=== PATIENT | female | born 1955 | race Caucasian/White ===

== ENCOUNTER 2022-02-12 10:10 | Emergency (ER) | payer MEDICARE, SELFPAY ==
[2022-02-12] VITALS (9 sets, daily range): BP systolic 115–172; BP diastolic 70–92; PULSE 68–88; RESP 17; TEMP 36.1; O2SAT 95–96; BMI 29.8
--- NOTE | 2022-02-12 10:47 | DI.RAD.S_ITS ---
PROCEDURE: XR HAND LT MIN 3V INDICATIONS: dog bit TECHNIQUE: 3 views of the hand(s) acquired. COMPARISON: None. FINDINGS: Bones: No fractures or dislocations. Carpal bones are normally aligned. No suspicious bony lesions. Soft tissues: No suspicious soft tissue calcifications. No soft tissue gas. No radiopaque foreign body. IMPRESSION: No evidence acute bony abnormality of the left hand. If clinical suspicion and/or symptoms persist, further assessment with repeat plain films, or advanced imaging (e.g., CT, MRI, or bone scan) may be helpful for further assessment. Dictated by: Juan Antonio Giles M.D. on 02/12/2022 at 10:57 Approved by: Juan Antonio Giles M.D. on 02/12/2022 at 10:58
[2022-02-12] MEDS: TET,DIPH,PERTUSS(ACELL),VAC/PF 0.5 ML SYRINGE IM (11:38)
[2022-02-12] MEDS: LIDO 1%/SOD BICARB 8.4% (10ML) 10 ML SYRINGE INJ (12:34)
[2022-02-12] MEDS: CLINDAMYCIN 150 MG CAPSULE 300 MG PO (12:34)
[2022-02-12] MEDS: IBUPROFEN 400 MG TABLET 800 MG PO (12:34)
[2022-02-12] MEDS: ONDANSETRON 4 MG ODT SL (12:34)
[2022-02-12] MEDS: TRAMADOL 50 MG TABLET PO (12:35)
[2022-02-12] MEDS: CLINDAMYCIN 150 MG CAPSULE PO (12:35)
[2022-02-12] MEDS: TRIMETH/SULFA 160/800 (DS) TABLET 1 TAB PO (12:35)
--- NOTE | 2022-02-12 15:54 | ED.ANIMALBIT ---
HPI - Animal Bite <JENNIFER Harrison - Last Filed: 02/12/22 16:03> General Chief Complaint: Animal Bite Stated Complaint: bite by a dog, lt hand ripped open Time Seen by Provider: 02/12/22 12:03 Source: patient Mode of arrival: Ambulatory History of Present Illness HPI narrative: This is a 66-year-old female presents to the emergency department with a left hand injury after her friend's dog bit the dorsum of her left hand. Patient is right-handed, states the dog reacted to her and bit the dorsum of her left hand over the MCP joint of her 2nd digit. She does not remember when her last tetanus was, states that she has a history of diabetes and psoriatic arthritis. She states that she took tramadol this morning for her pain and has been helpful. Patient has a dog is vaccinated for rabies and his vaccines are current. She has a dressing over her hand, states the bleeding is controlled with a dressing over it. Is she reports that it is approximately 2 in a [place] with a flap. Related Data Previous Rx's Medication Instructions Recorded mupirocin 2 % topical ointment 1 applic topical DAILY PRN hand 02/12/22 lac #15 grams ondansetron HCl 4 mg tablet 4 mg PO DAILY PRN nausea and 02/12/22 vomiting #10 tabs tramadol 50 mg tablet 50 mg PO BID PRN pain #14 tabs 02/12/22 Allergies Allergy/AdvReac Type Severity Reaction Status Date / Time Penicillins Allergy Verified 02/12/22 10:43 Review of Systems <JENNIFER Harrison - Last Filed: 02/12/22 16:03> Review of Systems Narrative: General: denies fever, chills, malaise, sweats, fatigue Head/Neck: denies headache, neck pain, dizziness Eyes: denies visual changes, eye pain Cardio: denies chest pain, palpitations, edema Respiratory: denies dyspnea, cough, orthopnea GI: denies abdominal pain, nausea, vomiting, or diarrhea : denies dysuria, hematuria, urinary retention, frequency or incontinence MSK: denies joint pain, muscle weakness Skin: denies rash, itching, skin lesions or other, laceration over the dorsum of her left hand which is covered she states it is very painful Neuro: denies numbness, tingling Patient History <JENNIFER Harrison - Last Filed: 02/12/22 16:03> Social History Smoking Status: Unknown if ever smoked Smoking Status: Unknown if ever smoked alcohol intake frequency: holidays/special occasions only Substance Use Type: does not use Exam <JENNIFER Harrison - Last Filed: 02/12/22 16:03> Narrative Exam Narrative: Independently reviewed vitals signs and nursing notes. General: cooperative, comfortable, in no acute distress, well groomed Head: atraumatic, symmetrical facial expressions Neck: supple Eyes: equal round and reactive, EOMI, conjunctiva normal Nose: nares patent, no rhinorrhea Mouth/Throat: moist mucus membranes Cardiovascular: regular rate and rhythm, no peripheral edema, warm extremities Respiratory: normal effort, able to speak in complete sentences, no audible wheezing, stridor, or rales. No retractions or tachypnea. MSK: moves all extremities, neurovascularly intact, no weakness, normal tone Skin: brisk capillary refill, no rash, no erythema, 2.0 circular avulsion/ laceration to the dorsum of her left hand, venous oozing Neuro: normal speech and cognition, A&O x3 Psych: mental status is grossly normal, congruent mood, normal affect, pleasant and cooperative Initial Vital Signs Initial Vital Signs: Vital Signs Temperature 97.0 F L 02/12/22 10:42 Pulse Rate 88 02/12/22 10:42 Respiratory Rate 17 02/12/22 10:42 Blood Pressure 129/85 02/12/22 10:42 Pulse Oximetry 95 02/12/22 10:42 Oxygen Delivery Method 02/12/22 10:42 <Roma Benavidez DO - Last Filed: 02/20/22 18:35> Initial Vital Signs Initial Vital Signs: Vital Signs Temperature 97.0 F L 02/12/22 10:42 Pulse Rate 88 02/12/22 10:42 Respiratory Rate 17 02/12/22 10:42 Blood Pressure 129/85 02/12/22 10:42 Pulse Oximetry 95 02/12/22 10:42 Oxygen Delivery Method 02/12/22 10:42 Procedures <JENNIFER Harrison - Last Filed: 02/12/22 16:03> Laceration Repair Laceration 1: Site: hand Side (If applicable): left Size (cm): 4 Description: flap, irregular and contaminated Depth: simple, single layer Local Anesthetic: lidocaine 1% and with bicarb Amount of anesthesia used (mL): 7 Pre-repair: wound explored, irrigated extensively, deep structures intact and extensive debridement Skin layer closed with: nylon Skin layer suture size: 6-0 Number of sutures: 9 Technique: horizontal mattress Orthopedic Splinting/Casting Injury #1: Side: left Upper Extremity Injury Location: hand and finger Upper Extremity Immobilizer: posterior splint (Second and 3rd digit splinted in extension with 2 in Ortho Glass from the distal tips of the 2nd and 3rd digit to the palmar aspect of her hand, wound was covered with Xeroform, Telfa, and bulky gauze dressing, her hand was wrapped with padding and gauze, splinted with Ortho Glass and wrapped with A) Post splinting neuro exam: intact and no change Post splinting vascular exam: intact Placed by: Provider Course <Yandy Shaffer [facility] - Last Filed: 02/12/22 16:03> Orders Ordered: Discontinued Medications Clindamycin HCl (Clindamycin 150 Mg Capsule) 300 mg PO NOW ONE Stop: 02/12/22 12:14 Last Admin: 02/12/22 12:34 Dose: 300 mg Documented By: MANDA Clindamycin HCl (Clindamycin 150 Mg Capsule) 150 mg PO NOW ONE Stop: 02/12/22 12:14 Last Admin: 02/12/22 12:35 Dose: 150 mg Documented By: MANDA Diphtheria/Tetanus/Acell Pertussis (Tet,Diph,Pertuss(Acell),Vac/Pf 0.5 Ml Syringe) 0.5 ml IM .ONCE ONE Stop: 02/12/22 11:35 Last Admin: 02/12/22 11:38 Dose: 0.5 ml Documented By: MANDA Ibuprofen (Ibuprofen 400 Mg Tablet) 800 mg PO NOW ONE Stop: 02/12/22 12:14 Last Admin: 02/12/22 12:34 Dose: 800 mg Documented By: MANDA Lidocaine/Sodium Bicarbonate (Lido 1%/Sod Bicarb 8.4% (10ml) 10 Ml Syringe) 10 ml INJ NOW ONE Stop: 02/12/22 12:14 Last Admin: 02/12/22 12:34 Dose: 10 ml Documented By: MANDA Ondansetron HCl (Ondansetron 4 Mg Odt) 4 mg SL NOW ONE Stop: 02/12/22 12:14 Last Admin: 02/12/22 12:34 Dose: 4 mg Documented By: MANDA Tramadol HCl (Tramadol 50 Mg Tablet) 50 mg PO NOW ONE Stop: 02/12/22 12:14 Last Admin: 02/12/22 12:35 Dose: 50 mg Documented By: MANDA Trimethoprim/Sulfamethoxazole (Trimeth/Sulfa 160/800 (Ds) Tablet) 1 tab PO NOW ONE Stop: 02/12/22 12:14 Last Admin: 02/12/22 12:35 Dose: 1 tab Documented By: MANDA Vital Signs Vital signs: Vital Signs - 8 hr 02/12/22 10:42 02/12/22 11:45 02/12/22 11:46 Temperature 97.0 F L Pulse Rate 88 74 Respiratory Rate 17 Blood Pressure 129/85 115/74 Pulse Oximetry 95 96 Oxygen Delivery Method Room Air 02/12/22 11:46 02/12/22 12:00 02/12/22 12:01 Temperature Pulse Rate 73 73 Respiratory Rate Blood Pressure 172/70 H Pulse Oximetry 96 96 Oxygen Delivery Method 02/12/22 12:01 02/12/22 12:30 02/12/22 12:31 Temperature Pulse Rate 72 68 71 Respiratory Rate Blood Pressure Pulse Oximetry 96 95 95 Oxygen Delivery Method 02/12/22 12:31 02/12/22 13:00 02/12/22 13:00 Temperature Pulse Rate 68 Respiratory Rate Blood Pressure 157/80 H 157/75 H Pulse Oximetry 96 Oxygen Delivery Method 02/12/22 13:30 02/12/22 13:30 Temperature Pulse Rate 72 Respiratory Rate Blood Pressure 161/92 H Pulse Oximetry 96 Oxygen Delivery Method <Roma Benavidez, - Last Filed: 02/20/22 18:35> Orders Ordered: Discontinued Medications Clindamycin HCl (Clindamycin 150 Mg Capsule) 300 mg PO NOW ONE Stop: 02/12/22 12:14 Last Admin: 02/12/22 12:34 Dose: 300 mg Documented By: MANDA Clindamycin HCl (Clindamycin 150 Mg Capsule) 150 mg PO NOW ONE Stop: 02/12/22 12:14 Last Admin: 02/12/22 12:35 Dose: 150 mg Documented By: MANDA Diphtheria/Tetanus/Acell Pertussis (Tet,Diph,Pertuss(Acell),Vac/Pf 0.5 Ml Syringe) 0.5 ml IM .ONCE ONE Stop: 02/12/22 11:35 Last Admin: 02/12/22 11:38 Dose: 0.5 ml Documented By: MANDA Ibuprofen (Ibuprofen 400 Mg Tablet) 800 mg PO NOW ONE Stop: 02/12/22 12:14 Last Admin: 02/12/22 12:34 Dose: 800 mg Documented By: MANDA Lidocaine/Sodium Bicarbonate (Lido 1%/Sod Bicarb 8.4% (10ml) 10 Ml Syringe) 10 ml INJ NOW ONE Stop: 02/12/22 12:14 Last Admin: 02/12/22 12:34 Dose: 10 ml Documented By: MANDA Ondansetron HCl (Ondansetron 4 Mg Odt) 4 mg SL NOW ONE Stop: 02/12/22 12:14 Last Admin: 02/12/22 12:34 Dose: 4 mg Documented By: MANDA Tramadol HCl (Tramadol 50 Mg Tablet) 50 mg PO NOW ONE Stop: 02/12/22 12:14 Last Admin: 02/12/22 12:35 Dose: 50 mg Documented By: MANDA Trimethoprim/Sulfamethoxazole (Trimeth/Sulfa 160/800 (Ds) Tablet) 1 tab PO NOW ONE Stop: 02/12/22 12:14 Last Admin: 02/12/22 12:35 Dose: 1 tab Documented By: MANDA Vital Signs Vital signs: Vital Signs - 8 hr 02/12/22 10:42 02/12/22 11:45 02/12/22 11:46 Temperature 97.0 F L Pulse Rate 88 74 Respiratory Rate 17 Blood Pressure 129/85 115/74 Pulse Oximetry 95 96 Oxygen Delivery Method Room Air 02/12/22 11:46 02/12/22 12:00 02/12/22 12:01 Temperature Pulse Rate 73 73 Respiratory Rate Blood Pressure 172/70 H Pulse Oximetry 96 96 Oxygen Delivery Method 02/12/22 12:01 02/12/22 12:30 02/12/22 12:31 Temperature Pulse Rate 72 68 71 Respiratory Rate Blood Pressure Pulse Oximetry 96 95 95 Oxygen Delivery Method 02/12/22 12:31 02/12/22 13:00 02/12/22 13:00 Temperature Pulse Rate 68 Respiratory Rate Blood Pressure 157/80 H 157/75 H Pulse Oximetry 96 Oxygen Delivery Method 02/12/22 13:30 02/12/22 13:30 Temperature Pulse Rate 72 Respiratory Rate Blood Pressure 161/92 H Pulse Oximetry 96 Oxygen Delivery Method [facility] - Animal Bite <Yandy Shaffer, [facility] - Last Filed: 02/12/22 16:03> Imaging Data Extremity x-ray #1: Radiologist's Impression: PROCEDURE:? XR HAND LT MIN 3V ? INDICATIONS:? dog bit ? TECHNIQUE:? 3 views of the hand(s) acquired.? ? COMPARISON:? None. ? FINDINGS:? ? Bones:? No fractures or dislocations.? Carpal bones are normally aligned.? No suspicious bony lesions.? ? Soft tissues:? No suspicious soft tissue calcifications.? No soft tissue gas.? No radiopaque foreign body. ? ? IMPRESSION:? No evidence acute bony abnormality of the left hand. ? If clinical suspicion and/or symptoms persist, further assessment with repeat plain films, or advanced imaging (e.g., CT, MRI, or bone scan) may be helpful for further assessment. ? ? ? Dictated by: Juan Antonio Giles M.D. on 02/12/2022 at 10:57 ? ? Approved by: Juan Antonio Giles M.D. on 02/12/2022 at 10:58 ? [facility] Narrative Medical decision making narrative: This is a 66-year-old female presents to the emergency department with a dog bite to the dorsum of her left hand. She has a history of diabetes, psoriatic arthritis, she was given a tetanus vaccination today, wound was cleaned with chlorhexidine, irrigated with normal saline. X-ray was negative for fracture, foreign body, osseous abnormality. Eight horizontal mattress sutures were placed with six 0 Ethilon and one simple suture to the flap/laceration on the dorsum of her left hand over her MCP joint. Wound edges were well approximated although border edges were irregular. Patient tolerated procedure well, her 2nd and 3rd digits were splinted in extension, similar to the opposite of a ulnar gutter splint along a radial aspect. Patient understands to have her sutures removed in 10 days, she was given clindamycin and Bactrim for dog bite prophylaxis due to her penicillin allergy and preference to avoid fluoroquinolones due to her traveling and moving at this time. Patient is appropriate and amenable to discharge home. Vital signs are stable on repeat examination is unremarkable. Patient has been informed of results. Patient has been given strict return to ER precautions for any new or worsening symptoms. Patient understands to follow up closely with outpatient providers as instructed. Patient understands plan and agrees to discharge home. All questions and concerns answered at this time. Discharge Plan Departure Patient Disposition: Home Clinical Impression: Dog bite Instructions: DI for Laceration Repair, DI for Dog Bite Activity Restrictions/Additional Instructions: *You have been diagnosed with a dog bite, and a laceration on the back of your hand. Please use your splint as needed while your moving things around so that you do not break open your sutures. You have nine sutures in your hand, they are non dissolvable, please have these removed in 10 days. Please keep it covered with antibiotic ointment, a nonstick dressing, and something in between the splint and your hand to absorb moisture, and wrapped with Tristin wrap. If you are done using your splint, then at least keep your wound covered with a Band-Aid. If you keep the wound edges covered with ointment it will not get dry and cracked his easily. Please take ibuprofen as needed for your pain in addition to tramadol. Ice it, keep it elevated as much as you can help prevent your arthritis when flaring. Please follow-up with [facility] if you are back in the area otherwise have your sutures removed and have your hand checked out at that time at another clinic. There is two prescriptions for clindamycin, please take one of each of them 3 times a day for seven days for a total of 450 mg each dose, in addition to this, take the Bactrim twice a day for seven days. There is nausea medication and tramadol available as needed. *What to do: *Please continue to take your regular medications as directed. [ x] New medication prescriptions sent to your pharmacy: [[facility] ] [ ] New medication written as a paper prescription [ ] No new medications given *Please follow up with your primary care provider in 2-3 days, call for an appointment. Let them know you were seen in the Emergency Department and that we asked that you be seen for follow-up. We will electronically transmit a record of today's note if your PCP is in our system *If you do not have a primary care provider please contact [phone] to establish care with one of the [facility] primary care providers. *Return to Emergency Department if you should have any new, worsening or concerning symptoms, such as [fever greater than 101F, chills, worsening pain, persistent vomiting or other bothersome symptoms] Prescriptions: New mupirocin 2 % ointment 1 applic topical DAILY PRN (Reason: hand lac) Qty: 15 0RF ondansetron HCl 4 mg tablet 4 mg PO DAILY PRN (Reason: nausea and vomiting) Qty: 10 0RF tramadol 50 mg tablet 50 mg PO BID PRN (Reason: pain) Qty: 14 0RF Referrals: [facility] [Provider Group] Visit Report Forms: Patient Portal/API <Roma Benavidez DO - Last Filed: 02/20/22 18:35> Cosign ED Attending Richard Attestation: I was immediately available in the department for consultation. Documentation has been reviewed. I agree with assessment and plan.
== END 2022-02-12 14:04 | disposition home or self-care (01) ==
PROVIDERS: Emergency Provider Nurse Practitioner Critical Care Medicine
DX: S61.452A Open bite of left hand, initial encounter (principal); W54.0XXA Bitten by dog, initial encounter; Z23 Encounter for immunization
CPT/HCPCS: 12002; 73130; 90471; 99283; 90715